=== PATIENT | female | born 1990 | race Two or more races ===

== ENCOUNTER 2017-12-20 11:39 | Emergency (ER) | payer OTHER ==
[~2017-12-20] VITALS: Ht 157.5 cm; Wt 59.0 kg
[2017-12-20] MEDS ORDERED: LORAZEPAM 0.5 MG TABLET PO ONE (12:00)
[2017-12-20] MEDS ORDERED: KETOROLAC TROMETHAMINE 30 MG INJ IM ONE (12:00)
[2017-12-20] MEDS ORDERED: LORAZEPAM 1 MG TABLET ONE (12:10)
[2017-12-20] MEDS ORDERED: KETOROLAC TROMETHAMINE 30 MG INJ ONE (12:10)
[2017-12-20 12:31] LABS: CREATININE 0.7 mg/dL (0.6-1.3)
[2017-12-20 12:35] LABS: BASOPHILS % (AUTO) 0.4 % (0.0-2.0); EOSINOPHILS % (AUTO) 0.4 % (0.0-7.0); HEMATOCRIT 39.2 % (31.2-41.9); HEMOGLOBIN 13.2 g/dL (10.9-14.3); LYMPHOCYTES # (AUTO) 1.2 K/uL (20.0-40.0); LYMPHOCYTES % (AUTO) 14.9 % (20.5-51.5); MEAN CORPUSCULAR HGB CONC 34 g/dL (32.3-35.6); MEAN CORPUSCULAR VOLUME 80.4 fL (75.5-95.3); MONOCYTES # (AUTO) 0.4 K/uL (2.0-10.0); MONOCYTES % (AUTO) 4.7 % (0.0-11.0); NEUTROPHILS # (AUTO) 6.4 K/uL (1.8-8.9); NEUTROPHILS % (AUTO) 79.6 % (38.5-71.5); PLATELET COUNT (AUTO) 238 K/uL (179-408); RED BLOOD CELL COUNT(AUTO) 4.87 MIL/uL (3.63-4.92)
--- NOTE | 2017-12-20 12:46 | NUR ---
PATIENT WAS BIB RESCUE FOR C/O CHEST PAIN. IV ALREADY IN PLACE BY [facility]. PLACED ON MONITOR. PATIENT IS AWAKE AND ALERT.
--- NOTE | 2017-12-20 12:47 | NUR ---
PATIENT STATES PAIN HAS DIMINISHED SIGNIFICANTLY AND STATES SHE "FEELS MUCH BETTER"
--- NOTE | 2017-12-20 13:29 | NUR ---
DC AND FOLLOW UP INSTRUCTIONS GIVEN AND EXPLAINED TO PATIENT WHO STATES SHE UNDERSTANDS ALL INSTRUCTIONS.
--- NOTE | 2017-12-20 13:29 | NUR ---
IV removed. Catheter intact and site benign. Pressure and 4x4 gauze applied to site. No bleeding noted.
== END 2017-12-20 13:33 | disposition home or self-care (01) ==
LOC: ER 11:42
DX: R07.9 Chest pain, unspecified (principal)
CPT/HCPCS: 36415; 71045; 84703; 85025; 93005; A4663; J1885